=== PATIENT | female | born 1995 | race African-American/Black ===

== ENCOUNTER 2020-12-17 10:13 | Emergency (ER) | payer OTHER, SELFPAY ==
[2020-12-17] VITALS (17 sets, daily range): BP systolic 98–124; BP diastolic 45–98; PULSE 70–112; RESP 13–35; TEMP 36.5; O2SAT 96–100
[2020-12-17 10:58] LABS: Basophils Percent Auto 0.2 % (0.2-1.2); Hematocrit 36.5 % (37.0-47.0); Hemoglobin 12.5 g/dL (12.0-15.0); Immature Granulocyte Absolute 0.02 K/mm3 (0.00-0.031); Immature Granulocyte Percent A 0.4 % (0-0.5); Lymphocytes Percent Auto 24.2 % (18.3-44.2); Mean Corpuscular HGB Conc 34.2 g/dl (32-36); Mean Corpuscular Volume 87.7 fl (80-100); Mean Platelet Volume 9.5 fl (7.4-10.4); Monocytes Absolute Auto 0.5 K/mm3 (0.1-0.6); Monocytes Percent Auto 9.3 % (2.6-8.5); Neutrophils Absolute Auto 3.5 K/mm3 (1.3-6.7); Neutrophils Percent Auto 65.9 % (45.5-73.1); Platelet Count Result 211 k/mm3 (150-375); Red Blood Count 4.16 M/mm3 (4.2-5.4); Red Cell Distribution Width 12.3 % (11.5-14.5); White Blood Count 5.4 K/mm3 (4.5-10.0)
--- NOTE | 2020-12-17 10:59 | PC.NURSE ---
Spoke with OB charge nurse told her pt needs a NST test while here in the ER. She states ok
[2020-12-17 11:10] LABS: Alanine Aminotransferase 25 U/L (4-35); Albumin Level 3.7 g/dL (3.5-5.1); Alkaline Phosphatase 113 U/L (38-126); Anion Gap 8 mmol/L (8-16); Aspartate Amino Transferase 40 U/L (14-36); Bilirubin,Total 0.6 mg/dL (0.2-1.3); Blood Urea Nitrogen 7 mg/dL (7-17); Calcium 8.6 mg/dL (8.4-10.2); Carbon Dioxide 20 mmol/L (22-30); Chloride 104 mmol/L (98-107); Estimated CRCL calculation 201 ml/min; Estimated Glomerular Filt Rate > 60; Glucose 85 mg/dL (65-105); Lipase 150 U/L (23-300); Potassium 3.2 mmol/L (3.4-5.0); Sodium 132 mmol/L (137-145)
[2020-12-17] MEDS: ONDANSETRON INJ 4 MG/2 ML VIAL IV PUSH ×2 (11:46→12:18)
[2020-12-17] MEDS: SODIUM CHLORIDE 0.9% IV 1,000 ML 999 ML IV CONT (11:47)
[2020-12-17] MEDS: OXYMETAZOLINE HCL 0.05% NAS 15 ML BTL (*BKC) 1 SPRAY (12:18)
[2020-12-17] MEDS: POTASSIUM CHLORIDE 20 MEQ TABLET 40 MEQ PO (12:18)
--- NOTE | 2020-12-17 13:20 | PC.NURSE ---
no further n/v. urine collected. vs stable.
[2020-12-17 13:31] LABS: Add Urine Microscopic? YES; Appearance Urine Cloudy (Clear); Bacteria Urine 2+ /hpf; Bilirubin Urine Negative (Negative); Blood Urine 2+ (Negative); Color Urine Amber (Yellow); Glucose Urine UA Negative (Negative); Ketones Urine 2+ mg/dL (Negative); Leukocyte Esterase Ur 3+ LEU/UL (Negative); Mucus Urine Moderate /lpf; Nitrate Urine Negative (Negative); Protein Urine 2+ mg/dL (Negative); RBC Urine >75 /hpf (0-2); Specific Grav Ur 1.025 (1.001-1.035); Squamous Epithelial Cell Urine Many /hpf (Few); WBC Urine >75 /hpf
--- NOTE | 2020-12-17 17:47 | ED.GENADULT ---
HPI - General Adult General Chief complaint: Nausea/Vomiting/Diarrhea Stated complaint: 30 wks , vomiting blood Time Seen by Provider: 12/17/20 10:24 Source: patient Mode of arrival: ambulatory Limitations: no limitations History of Present Illness HPI narrative: Patient that reports she is 30 weeks , presents with chief complaint of 4 days of persistent vomiting and nausea. Patient states today she vomited blood. Patient states 4 days ago and started with some blood specks and mucus and has progressed. Patient reports last night she did have some lower abdominal cramping that felt like contractions however she is not experiencing that pain today. Patient has had inconsistent care and does not have a NURSING SECRETARY. Patient denies fever, chills, chest pain, shortness of breath, vaginal bleeding or discharge. Related Data Allergies Allergy/AdvReac Type Severity Reaction Status Date / Time No Known Allergies Allergy Unverified 07/02/17 15:00 Review of Systems Review of Systems: Narrative: CONSTITUTIONAL: Denies fever, chills, or sweats. EYES: Denies visual changes, redness, or discharge. ENT: Denies rhinorrhea, congestion, sore throat, or otalgia. CARDIOVASCULAR: Denies chest pain, palpitations, or edema. RESPIRATORY: Denies cough or dyspnea. GASTROINTESTINAL: Reports nausea and vomiting. Ports bloody appearance to vomit denies abdominal pain, or diarrhea. GENITOURINARY: Denies dysuria or hematuria. SKIN: Denies rash or itching. MUSCULOSKELETAL: Denies back pain, joint pain, or myalgia. NEUROLOGIC: Denies headache, numbness, dizziness, or weakness. PSYCHIATRIC: Denies anxiety or depression. [facility] Surgical History Surgical History (Updated 10/09/19 @ 18:26 by Rosalinda Rodriges PA-C) History of section Social History Social History (Updated 10/09/19 @ 18:26 by Rosalinda Rodriges PA-C) Smoking status: Never smoker Gender identity (if verbalized by the patient): Female Exam Narrative: Exam Narrative: GENERAL: Well-appearing, well-nourished, and appears to feel ill. HEAD: Normocephalic, atraumatic. EYES: PERRLA and EOMI. ENT: Nares clear, no rhinorrhea or epistaxis. Mucous membranes moist. Oropharynx without tonsillar hypertrophy exudate or other lesions. No signs of dried blood or residual blood in oropharynx. Bilateral TMs pearly gallagher nonbulging NECK: Supple. No adenopathy or masses. CHEST: Clear to auscultation. No respiratory distress. No wheezes rales or rhonchi HEART: Regular rate and rhythm. ABDOMEN: Soft, gravid abdomen uterus palpable above umbilicus, nontender, normal active bowel sounds. EXTREMITIES: Normal range of motion. No edema. SKIN: Warm, dry, no rash. NEURO: No focal deficits. Alert and oriented x3. PSYCH: Normal mood and affect. Course Vital Signs Vital signs: Vital Signs Temperature 97.7 F 12/17/20 10:27 Pulse Rate 107 H 12/17/20 10:27 Respiratory Rate 19 12/17/20 10:27 Blood Pressure 116/76 12/17/20 10:27 Pulse Oximetry 96 12/17/20 10:27 Temperature 97.7 F 12/17/20 10:27 Pulse Rate 70 12/17/20 14:05 Respiratory Rate 18 12/17/20 14:05 Blood Pressure 98/53 L 12/17/20 14:05 Pulse Oximetry 100 12/17/20 14:05 Medical Decision Making MDM Narrative Medical decision making narrative: NG shows yellowish-brownish color bowel/stomach acid but it is not coffee-ground in appearance or bright red blood. No signs of renal failure or liver enzyme elevation. Patient given p.o. potassium for potassium of 3.2. Patient's platelet count is normal. Patient has been given a liter of fluids and declines the second liter stating that she feels improved. Patient also feels improved headache after receiving Tylenol. She states that the NG tube initiated headache. NG tube has been removed at patient's request as there was not a large amount of volume present. Consult with Dr. Lopez who states the patient struck drink plenty of fluids including
== END 2020-12-17 14:11 | disposition home or self-care (01) ==
PROVIDERS: Physician Assistant; Emergency Provider Emergency Medicine
DX: O23.43 Unspecified infection of urinary tract in pregnancy, third trimester (principal); O21.8 Other vomiting complicating pregnancy; K52.9 Noninfective gastroenteritis and colitis, unspecified; O99.283 Endocrine, nutritional and metabolic diseases complicating pregnancy, third trimester; E86.0 Dehydration; Z3A.30 30 weeks gestation of pregnancy
CPT/HCPCS: 36415; 80053; 81001; 83690; 85025; 87077; 87086; 87088; 96361; 96365; 96375; 96376; 99284; A9270; J0131; J2405; J7030

== ENCOUNTER 2021-02-08 03:50 | Inpatient (IN) | payer OTHER, SELFPAY ==
[2021-02-08] VITALS (16 sets, daily range): BP systolic 95–132; BP diastolic 50–87; PULSE 52–76; RESP 18–20; TEMP 36.2–36.9; BMI 34.3
[2021-02-08] MEDS: AMPICILLIN 2 GM/NS 100 ML 2 GM/100 ML BAG IVPB (04:39)
[2021-02-08 04:41] LABS: Basophils Percent Auto 0.3 % (0.2-1.2); Eosinophils Percent Auto 0.4 % (0-4.4); Hematocrit 34.4 % (37.0-47.0); Hemoglobin 11.3 g/dL (12.0-15.0); Immature Granulocyte Absolute 0.05 K/mm3 (0.00-0.031); Immature Granulocyte Percent A 0.4 % (0-0.5); Lymphocytes Absolute Auto 2.37 K/mm3 (0.9-3.2); Lymphocytes Percent Auto 20.9 % (18.3-44.2); Mean Corpuscular HGB Conc 32.8 g/dl (32-36); Mean Corpuscular Hemoglobin 29.2 pg (26-34); Mean Corpuscular Volume 88.9 fl (80-100); Mean Platelet Volume 9.4 fl (7.4-10.4); Monocytes Absolute Auto 0.8 K/mm3 (0.1-0.6); Monocytes Percent Auto 7.4 % (2.6-8.5); Neutrophils Percent Auto 70.6 % (45.5-73.1); Platelet Count Result 267 k/mm3 (150-375); Red Blood Count 3.87 M/mm3 (4.2-5.4); Red Cell Distribution Width 13.3 % (11.5-14.5); White Blood Count 11.3 K/mm3 (4.5-10.0)
[2021-02-08] MEDS: LACTATED RINGERS 1,000 ML 125 ML IV CONT (04:42)
--- NOTE | 2021-02-08 04:48 | LDADM ---
This patient, Karen Gibson, was admitted to Labor/Delivery/Recovery 104 on 02/08/21 at 04:19. Plans for labor, pain management and were discussed with patient. Patient/family oriented to hospital policies and general routines including ID bracelet, bed and alarms, visiting hours, pain management, procedures, bathroom and other care routines, personal items, smoking policy, room service/diet and guest tray routines, security routines, and visiting hours. Patient/Family are encouraged to report perceived risks to care and to ask questions if they do not understand what they are told or what they should do. See [facility]BI[facility] for further documentation.
[2021-02-08 05:28] LABS: Rubella IgG Antibody 31.8 IU/ML
[2021-02-08 05:31] LABS: Hepatitis B Surface Antigen Negative (Negative)
[2021-02-08 05:33] LABS: HIV 1/2 Ab P24 Ag Result Negative (Negative)
--- NOTE | 2021-02-08 07:01 | PM.IMHP ---
H&P: HPI History of Present Illness Date/Time: 02/08/21 07:01 25-year-old 4 para 3003 female at 38 weeks via ultrasound though she has had limited care. Primary delivery was via section in his she has had 2 successful be that since that time. Presents in active labor at 7cm. No bleeding or leaking of fluid and no other concerns though again has had limited care. Chief Complaint: Review of Systems Review of Systems: All systems reviewed & are unremarkable except as noted in HPI and below PMFSH Surgical History Surgical History History of section Social History Social History Smoking status: Never smoker Substance use: current Gender identity (if verbalized by the patient): Female Spiritual care concerns: No Meds Home Medications and Allergies Home Medications Medication Instructions Recorded Confirmed Type cephalexin [Keflex] 500 mg PO Q8H 5 Days #15 cap 10/09/19 Rx ibuprofen 600 mg PO TID PRN #14 tablet 10/09/19 Rx nitrofurantoin monohyd/m-cryst 100 mg PO Q12H 7 Days #14 cap 12/17/20 Rx [Macrobid] ondansetron HCl [Zofran] 4 mg PO Q8H PRN #20 tablet 12/17/20 Rx pantoprazole [Protonix] 40 mg PO HS #14 tablet 12/17/20 Rx Allergies Allergy/AdvReac Type Severity Reaction Status Date / Time No Known Allergies Allergy Unverified 07/02/17 15:00 Vital Signs Vital Signs - 24 hr 02/08/21 05:19 02/08/21 05:35 02/08/21 06:06 Temperature 36.9 C 36.2 C L Pulse Rate 57 L Blood Pressure 117/74 02/08/21 06:50 Temperature Pulse Rate 76 Blood Pressure 132/87 Exam Const: General: cooperative and healthy appearing Resp: Auscultation: clear to auscultation bilaterally Cardio: Rate: regular rate Rhythm: regular rhythm GI: Inspection: normal to inspection : Bimanual exam- vagina & uterus: enlarged ( Consistent with term ) Manual OB Exam: dilated 9 cm, effaced fully and station -2 Amniotic Fluid: Meconium-stained amniotic fluid present H&P: Results Labs Labs: Short CBC 02/08/21 Range/Units 04:33 WBC 11.3 H (4.5-10.0) K/mm3 Hgb 11.3 L (12.0-15.0) g/dL Hct 34.4 L (37.0-47.0) % Plt Count 267 (150-375) k/mm3 Assessment and Plan Assessment and plan (1) Term : Code(s): Z34.90 - Encounter for supervision of normal , unspecified, unspecified trimester Status: Acute (2) Limited care: Code(s): O09.30 - Supervision of with insufficient care, unspecified trimester Status: Acute (3) History of section: Code(s): Z98.891 - History of uterine scar from previous surgery Status: Acute (4) Hx successful (vaginal after ), currently : Code(s): O34.219 - Maternal care for unspecified type scar from previous delivery Status: Acute Additional Plan 1. Amniotomy with expected vaginal delivery. As patient is close to delivery will monitor closely and not proceed with repeat delivery by .
--- NOTE | 2021-02-08 07:07 | WPDHPUPDATE1 ---
History and Physical Update Update Date/Time: 02/08/21 07:07 History and Physical has been reviewed, including an updated exam of the patient. There are NO changes in the patient's condition. Risks, benefits, and alternatives have been discussed and questions answered. Patient agrees to proceed with procedure.
[2021-02-08] MEDS: OXYTOCIN 30 UNITS/NS 500 ML 30 UNITS/500 ML BAG 999 UNITS IV CONT ×2 (07:45→08:15)
--- NOTE | 2021-02-08 07:46 | PM.OBPRVD ---
OB - Delivery Note Procedure events: No Care Intrapartal events: None Induction method: none Delivery monitor: external FHT Route of delivery: Episiotomy description: None Laceration Description: None Specimen: Yes Quantitative Blood Loss (ml): 300 Anesthesia type: None Disposition: floor Narrative: Patient was prepped and draped in usual manner for this procedure. Maternal expulsive efforts readily delivered vertex with nuchal cord readily reduced. The yesterday was delivered cord was clamped and the placenta delivered spontaneously. Cervix vagina vulva were inspected lacerations or tears at this point the procedure was considered terminated. Baby Weeks of gestation at delivery: 38 Infant gender: Female presentation: vertex Placenta delivery description: Spontaneous score one minute: 9 score five minutes: 9
[2021-02-08] MEDS: IBUPROFEN 600 MG TABLET PO ×2 (08:16→20:06)
--- NOTE | 2021-02-08 10:11 | OBPPTRN ---
Patient transferred to post room # 284 via wheelchair. Support person present. Oriented to unit, room, information board, rooming in, admission packet and security measures. Patient verbalizes understanding.
[2021-02-08] MEDS: BENZOCAINE 20% AER SPR (*SP) 56 GM CAN 1 SPRAY TOPICAL (10:20)
[2021-02-08] MEDS: WITCH HAZEL 40 PADS 1 PAD TOPICAL (10:21)
[2021-02-08 11:01] LABS: Amphetamine Screen Urine Negative (Negative); Barbiturate Screen Urine Negative (Negative); Benzodiazepines Screen Urine Negative (Negative); Cannabinoid Screen Urine Positive (Negative); Cocaine Screen Urine Negative (Negative); Methadone Screen Urine Negative (Negative); Opiate Screen Urine Negative (Negative); Phencyclidine Screen Urine Negative (Negative)
[2021-02-08] MEDS: ACETAMINOPHEN 325 MG TABLET 650 MG PO (12:19)
[2021-02-09 00:15] VITALS: BP 112/62; PULSE 74; RESP 18; TEMP 37
--- NOTE | 2021-02-09 03:07 | PC.NURSE ---
02/09/2021 at 0159 Daylight Savings Time For Daylight Savings Time Beginning in the Spring - Clocks are moved ahead. For [facility], the time of change occurs at 0200 hrs. Time is taken from the server security administrator. This entry on the patient's chart recognizes the change in time reflected during documentation. Example: 2 entries for vital signs may be charted for 0200 hrs.
[2021-02-09 04:00] VITALS: BP 116/68; PULSE 73; RESP 18; TEMP 36.8
[2021-02-09] MEDS: IBUPROFEN 600 MG TABLET PO ×2 (05:21→13:46)
[2021-02-09] MEDS: ACETAMINOPHEN 325 MG TABLET 650 MG PO (05:21)
[2021-02-09 05:47] LABS: Hematocrit 29.1 % (37.0-47.0); Hemoglobin 9.6 g/dL (12.0-15.0)
[2021-02-09 07:15] VITALS: BP 93/49; PULSE 67; RESP 20; TEMP 36.8
[2021-02-09] MEDS: MULTIVIT/MIN/PREN/FOL AC/IRON TABLET 1 TAB PO (11:00)
[2021-02-09] MEDS: DOCUSATE SODIUM 100 MG CAPSULE PO (11:00)
[2021-02-09] MEDS: POLYSACCHARIDE IRON COMPLEX 150 MG CAPSULE PO (11:00)
--- NOTE | 2021-02-09 12:50 | PM.OBDSVD ---
DS: Admitting Diagnosis Admitting Diagnosis Admitting Diagnosis: OB - DS: Summary OB Procedures : None OB Procedures Intrapartum: Spontaneous Vag Delivery and OB Procedures: : None Time Spent with Patient Time attestation: Total time spent providing and/or coordinating discharge services: DS: Data Data Completed and Pending Pending studies at discharge: Pending at discharge 02/08/21 07:41 Surgical [PTH] Routine Labs on day of discharge: Labs from last 24 hours 02/09/21 05:17 Hgb 9.6 L Hct 29.1 L Discharge Plan Discharge Consulting providers: Magdi Salmeron Discharging Clinician: Pradeep Miller Patient Disposition: Home, Self-Care Activity: as tolerated Diet: as tolerated Patient Instructions: Antibiotic Form Stand Alone Forms: General Discharge Information Follow-up/Referrals: Pradeep Miller MD [Physician] - 3 Weeks Discharge Medications: New ibuprofen 600 mg Tablet 600 mg PO Q6H Qty: 20 RF: 0 Continued pantoprazole [Protonix] 40 mg tablet,delayed release (DR/EC) 40 mg PO HS Qty: 14 RF: 0 ibuprofen 600 mg tablet 600 mg PO TID PRN (Reason: pain) Qty: 14 RF: 0 Discontinued nitrofurantoin monohyd/m-cryst [Macrobid] 100 mg capsule 100 mg PO Q12H 7 Days Qty: 14 RF: 0 ondansetron HCl [Zofran] 4 mg tablet 4 mg PO Q8H PRN (Reason: nausea and vomiting) Qty: 20 RF: 0 cephalexin [Keflex] 500 mg capsule 500 mg PO Q8H 5 Days Qty: 15 RF: 0 Date of admission: 02/08/21 04:19 Primary Care Provider: PHYSICIAN,MANAGER CAR Admitting Provider: Connie Vieira Attending physician on admission: Connie Vieira Condition: Stable
--- NOTE | 2021-02-09 13:46 | PCCCNOTE ---
Care Coordination: Met with pt. due to receiving notification that baby girl urine drug screen tested positive for marijuana. Pt. reports she uses marijuana for nausea and anxiety. Pt. reports baby girl will live with her and FOB in [place] with her other two children. Pt. reports she has support from her family and FOB's family, and denies need for resources. Pt. states she has everything that is needed for baby girl. Pt. reports she is in the process of reapplying for [employer] [place] and has an appointment next week to set up WIC. Pt. states she has no prior involvement with DCFS. Nursing and CC have no other concerns for baby girl. Reported using online portal; Ref ID #[id number].
[2021-02-10 07:17] LABS: Rapid Plasma Reagin Non-Reactive (NonReactive)
[2021-02-10 12:35] VITALS: BP 115/76; PULSE 77; RESP 18; TEMP 37.3; O2SAT 100
== END 2021-02-09 15:29 | disposition home or self-care (01) | DRG 560 ==
LOC: ANHLDR 04:29 → ANHOB2 02-09 12:50 → ANHLDR 02-11 09:49 → ANHOB2 02-11 09:49
PROVIDERS: Admitting Provider Obstetrics & Gynecology; Visit Provider Obstetrics & Gynecology
DX: O34.211 Maternal care for low transverse scar from previous cesarean delivery (principal); Z37.0 Single live birth; Z3A.38 38 weeks gestation of pregnancy; O69.81X0 Labor and delivery complicated by cord around neck, without compression, not applicable or unspecified; O77.0 Labor and delivery complicated by meconium in amniotic fluid
CPT/HCPCS: 36415; 80307; 85014; 85018; 85025; 86592; 86703; 86762; 86850; 86900; 86901; 87340; 88307; A9270; G0432; J0290; J2590; J7120

== ENCOUNTER 2021-12-09 15:24 | Emergency (ER) | payer OTHER, SELFPAY ==
--- NOTE | ~2021-12-09 | XR_ITS ---
EXAMINATION: XR lumbar spine 2-3V DATE: 12/09/2021 17:06 INDICATION: Low back pain TECHNIQUE: Anteroposterior and lateral views of the lumbar spine, and cone-down lateral view of the l umbosacral junction were obtained. COMPARISON: None. FINDINGS: There is no fracture, dislocation, or subluxation. The vertebral body heights, alignment, a nd intervertebral disc spaces are normal. IMPRESSION: 1. No acute osseous abnormality. Reviewed, dictated and finalized at location F. SCIENCE TECHNICAL OFFICER
[2021-12-09 15:47] VITALS: BP 122/93; PULSE 82; RESP 17; TEMP 36.7; O2SAT 99
[2021-12-09] MEDS: KETOROLAC (*BKC) 60 MG/2 ML VIAL IM (17:04)
--- NOTE | 2021-12-09 19:45 | ED.GENADULT ---
HPI - General Adult General Chief complaint: Back Pain/Injury <Ruth Cam PA-C - Last Filed: 12/09/21 19:48> Stated complaint: BACK PAIN <Ruth Cam PA-C - Last Filed: 12/09/21 19:48> Time Seen by Provider: 12/09/21 15:54 <Ruth Cam PA-C - Last Filed: 12/09/21 19:48> Source: patient <SUJATHA Martino Last Filed: 12/09/21 19:48> Mode of arrival: ambulatory <SUJATHA Martino Last Filed: 12/09/21 19:48> Limitations: no limitations <SUJATHA Martino Filed: 12/09/21 19:48> History of Present Illness HPI narrative: Patient is a 25-year-old female with chief complaint of low back pain that began after standing up quickly while vacuuming. Patient reports today having intermittent spasming to her low back. She denies any falls or direct traumas. Patient denies any radiculopathy down her lower extremities. Patient denies loss of bowel or bladder function or saddle paresthesias. She has not taken anything to alleviate her symptoms. <SUJATHA Martino Last Filed: 12/09/21 19:48> Related Data Allergies/adverse reactions: Allergies Allergy/AdvReac Type Severity Reaction Status Date / Time No Known Allergies Allergy Unverified 07/02/17 15:00 <Ruth Cam PA-C - Last Filed: 12/09/21 19:48> Review of Systems Review of Systems: CONSTITUTIONAL: Denies fever, chills, or sweats. EYES: Denies visual changes, redness, or discharge. ENT: Denies rhinorrhea, congestion, sore throat, or otalgia. CARDIOVASCULAR: Denies chest pain, palpitations, or edema. RESPIRATORY: Denies cough or dyspnea. GASTROINTESTINAL: Denies abdominal pain, nausea, vomiting, or diarrhea. GENITOURINARY: Denies dysuria or hematuria. SKIN: Denies rash or itching. MUSCULOSKELETAL: Reports back pain, denies joint pain, or myalgia. NEUROLOGIC: Denies headache, numbness, dizziness, or weakness. PSYCHIATRIC: Denies anxiety or depression. <Ruth Cam PA-C - Last Filed: 12/09/21 19:48> PMFSH Surgical History Surgical History: Surgical History History of section <Ruth Cam PA-C - Last Filed: 12/09/21 19:48> Social History Social History: Social History Smoking status: Never smoker Substance use: current Gender identity (if verbalized by the patient): Female Spiritual care concerns: No <Ruth Cam PA-C - Last Filed: 12/09/21 19:48> Exam Narrative: GENERAL: Well-appearing, well-nourished, and in no acute distress. HEAD: Normocephalic, atraumatic. EYES: PERRLA and EOMI. CHEST: Clear to auscultation. No respiratory distress. No wheezes rales or rhonchi HEART: Regular rate and rhythm. No murmur heard. Normal peripheral pulses. BACK: No vertebral point tenderness. tenderness with palpation b/l lower back paraspinal muscles. No saddle parasthesias. Gait steady. Motor function intact. EXTREMITIES: Normal range of motion. SKIN: Warm, dry, no rash. NEURO: No focal deficits. Alert and oriented x3. PSYCH: Normal mood and affect. <Ruth Cam PA-C - Last Filed: 12/09/21 19:48> Course FRETTED INSTRUMENTS INSPECTOR/PA Physician Supervision For this patient encounter, I reviewed the FRETTED INSTRUMENTS INSPECTOR or PA documentation, treatment plan, and medical decision making. <Saúl Snyder MD - Last Filed: 12/10/21 11:21> Vital Signs Vital signs: Vital Signs Temperature 98.0 F 12/09/21 15:47 Pulse Rate 82 12/09/21 15:47 Respiratory Rate 17 12/09/21 15:47 Blood Pressure 122/93 H 12/09/21 15:47 Pulse Oximetry 99 12/09/21 15:47 Temperature 98.0 F 12/09/21 15:47 Pulse Rate 82 12/09/21 15:47 Respiratory Rate 17 12/09/21 15:47 Blood Pressure 122/93 H 12/09/21 15:47 Pulse Oximetry 99 12/09/21 15:47 <Ruth Cam PA-C - Last Filed: 12/09/21 19:48> Vital Signs Temperature 98.0 F 12/09/21 15:47 Pulse Rate 82 11/29
== END 2021-12-09 17:20 | disposition home or self-care (01) ==
PROVIDERS: Emergency Provider Emergency Medicine
DX: M54.50 Low back pain, unspecified (principal)
CPT/HCPCS: 72100; 81025; 96372; 99283; J1885

== ENCOUNTER 2023-03-21 10:20 | Emergency (ER) | payer OTHER, SELFPAY ==
[2023-03-21 11:55] LABS: Influenza A QL RT-PCR Negative (Negative); Influenza B QL RT-PCR Negative (Negative); SARS-CoV-2 RNA PCR Negative (Negative)
[2023-03-21 12:32] VITALS: TEMP 36.2
[2023-03-21] MEDS: ONDANSETRON HCL ODT 4 MG TABLET PO (12:53)
[2023-03-21 13:07] LABS: Appearance Urine Turbid (Clear); Bacteria Urine 4+ /hpf; Bilirubin Urine Negative (Negative); Blood Urine 1+ (Negative); Color Urine Yellow (Yellow); Glucose Urine UA Negative (Negative); Ketones Urine Negative (Negative); Leukocyte Esterase Ur 3+ LEU/UL (Negative); Nitrate Urine Positive (Negative); Non Pathogenic Casts 0-2; Protein Urine Negative (Negative); Specific Grav Ur 1.011 (1.001-1.035); Squamous Epithelial Cell Urine Moderate /hpf (Few); WBC Urine >100 /hpf
[2023-03-21 13:11] LABS: Add Urine Microscopic? YES
--- NOTE | 2023-03-21 13:32 | ED.GENADULT ---
HPI - General Adult General Chief complaint: Nausea/Vomiting/Diarrhea Stated complaint: cold symptoms, vomiting Time Seen by Provider: 03/21/23 11:02 History of Present Illness HPI narrative: Patient is a 27-year-old female who presents ER with vomiting beginning this morning. Occurred 1 time. Reports she has been feeling ill over the last 3 days has had some cough and congestion as well. Her daughter is currently in the ER with viral symptoms. Patient has no abdominal pain diarrhea. She has had some urinary frequency or dysuria and hematuria. Related Data Allergies Allergy/AdvReac Type Severity Reaction Status Date / Time No Known Allergies Allergy Verified 03/21/23 12:36 Review of Systems Review of Systems: All systems reviewed & are unremarkable except as noted in HPI and below Constitutional: Constitutional: Denies chills and Denies fever(s) ENT: Reports nasal congestion and Reports sore throat Respiratory: Respiratory: Reports cough and Denies dyspnea Gastrointestinal: Gastrointestinal: Denies abdominal pain, Denies diarrhea, Reports nausea and Reports vomiting Genitourinary: Genitourinary: Reports nocturia, Denies dysuria and Denies flank pain PMFSH Surgical History Surgical History History of section Social History Social History Smoking status: Never smoker Substance use: current Gender identity (if verbalized by the patient): Female Spiritual care concerns: No Exam Narrative: GENERAL: Well-appearing, well-nourished, and in no acute distress. HEAD: Normocephalic, atraumatic. CHEST: Clear to auscultation. No respiratory distress. HEART: Regular rate and rhythm. Normal peripheral pulses. ABDOMEN: Soft, nontender, nondistended. EXTREMITIES: Normal range of motion. No edema. NEURO: Alert and oriented x3. PSYCH: Normal mood and affect. Course Course Emergency Course: Patient resting comfortably. Will give oral antibiotic prior to discharge. Patient morphine. Zofran patient cephalexin for home. Discussed return precautions diagnosis and patient verbalized understanding. Vital Signs Vital signs: Vital Signs Temperature 97.2 F L 03/21/23 12:32 Temperature 97.2 F L 03/21/23 12:32 Medical Decision Making Vital Signs Vital Signs: Vital Signs Temperature 97.2 F L 03/21/23 12:32 Temperature 97.2 F L 03/21/23 12:32 Lab Data Labs: Lab Results 03/21/23 03/21/23 Range/Units 11:14 12:53 Urine Color Yellow (Yellow) Urine Appearance Turbid H (Clear) Urine pH 7.0 (5.0-9.0) Ur Specific [place] 1.011 (1.001-1.035) Urine Protein Negative (Negative) mg/dL Urine Glucose (UA) Negative (Negative) mg/dL Urine Ketones Negative (Negative) mg/dL Ur Blood (Man) 1+ H (Negative) Urine Nitrate Positive H (Negative) Urine Bilirubin Negative (Negative) Urine Urobilinogen 1.0 (<2.0) mg/dL Leukocyte Esterase Rfl 3+ H (Negative) NOÉ/UL Urine RBC 3-5 H (0-2) /hpf Urine WBC >100 H /hpf Ur Squamous Epith Cells Moderate H (Few) /hpf Urine Bacteria 4+ H /hpf Urine Casts 0-2 Influenza A (RT-PCR) Negative (Negative) Influenza B (RT-PCR) Negative (Negative) SARS-CoV-2 RNA (RT-PCR) Negative (Negative) Urine Characteristics Cloudy Discharge Plan Discharge Clinical Impression: UTI (urinary tract infection), Nausea & vomiting Patient Disposition: Home, Self-Care Condition: Stable Instructions: Antibiotic Form, Urinary Tract Infection in Women (ED), Acute Nausea and Vomiting (ED) Additional Instructions: Return the ER if you have fever over 100.4 ?F, you cannot keep down food or water, you have additional concerns. Take the full course of antibiotics. Prescriptions: New cephalexin 500 mg c
[2023-03-21] MEDS: CEPHALEXIN 500 MG CAPSULE PO (14:02)
[2023-03-21 14:10] VITALS: BP 120/74; PULSE 75; RESP 16; TEMP 36.4; O2SAT 100
== END 2023-03-21 14:10 | disposition home or self-care (01) ==
PROVIDERS: Emergency Provider Emergency Medicine
DX: N39.0 Urinary tract infection, site not specified (principal); R11.2 Nausea with vomiting, unspecified; Z20.822 Contact with and (suspected) exposure to COVID-19
CPT/HCPCS: 81001; 87077; 87086; 87088; 87186; 87636; 99283; A9270

== ENCOUNTER 2023-05-13 16:31 | Emergency (ER) | payer OTHER, SELFPAY ==
[2023-05-13 17:30] VITALS: BP 115/70; PULSE 90; RESP 18; TEMP 36.9; O2SAT 99
--- NOTE | 2023-05-13 18:25 | ED.EAR ---
HPI - Ear Problem General Chief complaint: Ear Stated complaint: throat/ear pain Time Seen by Provider: 05/13/23 18:12 History of Present Illness HPI Narrative: Patient is a 27-year-old female here for evaluation of sore throat, bilateral ear fullness, and red spots in the back of her throat x2 days. Patient states she is attempted aspirin for her symptoms without relief. She has not taken her temperature at home but that she felt warm yesterday. Reports sneezing but no cough, shortness of breath. Positive sick contacts, patient's boyfriend is sick with similar symptoms. She has not taken a COVID test and does not want one today. Related Data Allergies Allergy/AdvReac Type Severity Reaction Status Date / Time No Known Allergies Allergy Verified 03/21/23 12:36 Review of Systems Review of Systems: Gen.: Denies fevers or chills Eyes: Denies eye pain or visual change ENT: Reports sore throat Respiratory: Reports sneezing. Denies shortness of breath or cough CV: Denies chest pain or palpitations GI: Denies abdominal pain nausea, emesis or diarrhea denies burning, urgency, frequency or hematuria Musculoskeletal: Denies back pain or muscle pain Neuro: Denies numbness, tingling, weakness or focal weakness Skin: Denies rash Except as documented, all other systems reviewed and negative PMFSH Surgical History Surgical History History of section Social History Social History Smoking status: Never smoker Substance use: current Gender identity (if verbalized by the patient): Female Spiritual care concerns: No Exam Narrative: APPEARANCE: Well appearing, no pain in distress, well-nourished. Head: Normocephalic and atraumatic. EYES: PERRLA/EOMI, conjunctivae clear NOSE: No nasal drainage EARS: External ear normal in appearance THROAT: Oropharynx is clear. Mucous membranes are moist. NECK: Supple. No adenopathy, no masses. RESPIRATORY: Airway patent, respirations nonlabored. Clear to auscultation bilaterally, no rales, rhonchi, wheezing. CARDIOVASCULAR: Regular rate and rhythm without murmurs, rubs, or gallops. ABDOMINAL: Normoactive bowel sounds. Soft, nontender, nondistended. No rebound tenderness or guarding. MUSCULOSKELETAL: Extremities are warm and well-perfused. Moves all extremities well. No edema. NEURO: Normal speech. No focal neurologic deficits. SKIN: Skin is warm and dry. No rashes. PSYCHIATRIC: Normal affect/mood.. Course Vital Signs Vital signs: Vital Signs Temperature 98.4 F 05/13/23 17:30 Pulse Rate 90 05/13/23 17:30 Respiratory Rate 18 05/13/23 17:30 Blood Pressure 115/70 05/13/23 17:30 Pulse Oximetry 99 05/13/23 17:30 Oxygen Delivery Room Air 05/13/23 17:30 Temperature 98.4 F 05/13/23 17:30 Pulse Rate 90 05/13/23 17:30 Respiratory Rate 18 05/13/23 17:30 Blood Pressure 115/70 05/13/23 17:30 Pulse Oximetry 99 05/13/23 17:30 Oxygen Delivery Room Air 05/13/23 17:30 Medical Decision Making [facility] Narrative Medical decision making narrative: 27-year-old female here for evaluation of upper respiratory infectious symptoms x1 day. She has an erythematous posterior oropharynx and some palatal petechiae, tonsils are 1+ without exudates, no lymphadenopathy, patient is tolerating her secretions. TMs are clear bilaterally. Patient does not want a wait for the results of the strep test and walked out before this resulted, which was ultimately negative. She was treated with Decadron. Likely viral URI. Vital Signs Vital Signs: Vital Signs Temperature 98.4 F 05/13/23 17:30 Pulse Rate 90 05/13/23 17:30 Respiratory Rate 18 05/13/23 17:30 Blood Pressure 115/70 05/13/23 17:30 Pulse Oximetry 99 05/13/23 17:30 Oxygen Delivery Room Air 05/13/23 17:30 Temperature 98.4 F 05/13/23 17:30 Pulse Rate
--- NOTE | 2023-05-13 19:38 | PC.NURSE ---
called lab, and strep test will be approximately 30-40 minutes longer for result.
--- NOTE | 2023-05-13 19:44 | PC.NURSE ---
Patient unable to wait for strep test to be rerun per lab. MARINA Tellez notified.
[2023-05-13 20:04] LABS: Strep Group A RT-PCR NOT DETECTED (Negative)
== END 2023-05-13 19:46 | disposition left against medical advice (07) ==
LOC: ANHED 19:01
PROVIDERS: Emergency Medicine; Emergency Provider Physician Assistant
DX: J02.9 Acute pharyngitis, unspecified (principal)
CPT/HCPCS: 87651; 96372; 99283; J1100